=== PATIENT | male | born 1995 | race Caucasian/White ===

== ENCOUNTER 2017-05-30 22:42 | Emergency (ER) | payer BC ==
--- NOTE | 2017-05-30 22:51 | ER Report ---
History and Physical Time Seen By MD: 22:50 HPI/ROS CHIEF COMPLAINT: Dark urine, vomiting blood HISTORY OF PRESENT ILLNESS: 21-year-old male alcoholic who drinks one half pint per day for many months. Patient's concerned because he developed dark urine, which he thought was blood. Patient's been having vomiting. He vomited some blood.. He denies nosebleeds. Patient denies history of ulcers or varices. REVIEW OF SYSTEMS: Respiratory: No cough, no dyspnea. Cardiovascular: No chest pain, no palpitations. Gastrointestinal: As above Musculoskeletal: No back pain. Allergies: Coded Allergies: No Known Drug Allergies (Unverified , 05/30/17) Home Meds Active Scripts Omeprazole (OMEPRAZOLE) 20 Mg Capsule.dr, 1 CAP PO QDAY Y for stomach acid reduction, #28 CAP Prov:SEGUNDO LOPES DO 05/30/17 Diazepam (VALIUM) 5 Mg Tablet, 1-2 TAB PO TID Y for alcohol withdrawal symptoms , #15 TAB Prov:SEGUNDO LOPES DO 05/30/17 Promethazine Hcl (PROMETHAZINE HCL) 25 Mg Tablet, 25 MG PO Q4H Y for NAUSEA/ VOMITING, #12 TAB Prov:SEGUNDO LOPES DO 05/30/17 Reviewed Nurses Notes: Yes Old Medical Records Reviewed: Yes Constitutional Vital Sign - Last 24 Hours 05/30/17 05/31/17 22:47 00:13 Temp 98.5 Pulse 132 85 Resp 18 16 B/P (MAP) 148/110 128/84 (99) Pulse Ox 94 95 O2 Delivery Room Air Room Air Physical Exam General Appearance: The patient is alert, has no immediate need for airway protection and no current signs of toxicity. Vital signs stable, grossly tachycardic, afebrile, pulse ox normal Eyes: Pupils equal and round no injection. Icteric sclera, oropharynx without redness or exudate, mucous membranes are moist Respiratory: Chest is non tender, lungs are clear to auscultation. Cardiac: regular rate and rhythm Gastrointestinal: Abdomen is soft and non tender, no masses, bowel sounds normal. No hepatomegaly Musculoskeletal: Neck: Neck is supple and non tender. Extremities have full range of motion and are non tender. Skin: No rashes or lesions. DIFFERENTIAL DIAGNOSIS: After history and physical exam differential diagnosis was considered for alcohol dependence, alcoholic liver disease, jaundice, there is, peptic ulcer disease, gastritis. Medical Decision Making Data Points Result Diagram: 05/30/17230405/30/172304 Laboratory Hematology Test 05/30/17 23:05 Red Blood Count 4.77 M/uL (4.00-5.60) Mean Corpuscular Volume 101.3 fL (80.0-96.0) Mean Corpuscular Hemoglobin 35.5 pg (26.0-33.0) Mean Corpuscular Hemoglobin Concent 35.0 g/dL (32.0-36.0) Red Cell Distribution Width 13.4 % (11.5-14.5) Mean Platelet Volume 7.8 fL (7.2-11.1) Neutrophils (%) (Auto) 71.0 % (39.4-72.5) Lymphocytes (%) (Auto) 20.9 % (17.6-49.6) Monocytes (%) (Auto) 7.2 % (4.1-12.4) Eosinophils (%) (Auto) 0.2 % (0.4-6.7) Basophils (%) (Auto) 0.7 % (0.3-1.4) Nucleated RBC Relative Count (auto) 0.0 /100WBC Neutrophils # (Auto) 4.7 K/uL (2.0-7.4) Lymphocytes # (Auto) 1.4 K/uL (1.3-3.6) Monocytes # (Auto) 0.5 K/uL (0.3-1.0) Eosinophils # (Auto) 0.0 K/uL (0.0-0.5) Basophils # (Auto) 0.0 K/uL (0.0-0.1) Nucleated RBC Absolute Count (auto) 0.00 K/uL Prothrombin Time 13.3 seconds (12.0-14.4) Prothromb Time International Ratio 1.01 Activated Partial Thromboplast Time 24 seconds (23-35) Sodium Level 139 mmol/L (137-145) Potassium Level 3.3 mmol/L (3.5-5.0) Chloride Level 95 mmol/L (98-107) Carbon Dioxide Level 18 mmol/L (22-30) Blood Urea Nitrogen 8 mg/dl (9-21) Creatinine 1.00 mg/dl (0.66-1.25) Glomerular Filtration Rate Calc > 60.0 Random Glucose 107 mg/dl (75-110) Calcium Level 9.6 mg/dl (8.4-10.2) Total Bilirubin 3.0 mg/dl (0.2-1.3) Aspartate Amino Transf (AST/SGOT) 258 U/L (0-35) Alanine Aminotransferase (ALT/SGPT) 162 U/L (0-56) Alkaline Phosphatase 79 U/L (0-126) Total Protein 7.5 gm/dl (6.3-8.2) Albumin 4.8 g/dl (3.5-5.0) Amylase Level 92 U/L (0-110) Lipase 182 U/L (23-300) Serum Alcohol 196 mg/dl Chemistry Test 05/30/17 23:05 White Blood Count 6.7 k/uL (4.5-11.0) Red Blood Count 4.77 M/uL (4.00-5.60) Hemoglobin 16.9 g/dL (14.0-18.0) Hematocrit 48.3 % (42.0-52.0) Mean Corpuscular Volume 101.3 fL (80.0-96.0) Mean Corpuscular Hemoglobin 35.5 pg (26.0-33.0) Mean Corpuscular Hemoglobin Concent 35.0 g/dL (32.0-36.0) Red Cell Distribution Width 13.4 % (11.5-14.5) Platelet Count 225 K/uL (150-450) Mean Platelet Volume 7.8 fL (7.2-11.1) Neutrophils (%) (Auto) 71.0 % (39.4-72.5) Lymphocytes (%) (Auto) 20.9 % (17.6-49.6) Monocytes (%) (Auto) 7.2 % (4.1-12.4) Eosinophils (%) (Auto) 0.2 % (0.4-6.7) Basophils (%) (Auto) 0.7 % (0.3-1.4) Nucleated RBC Relative Count (auto) 0.0 /100WBC Neutrophils # (Auto) 4.7 K/uL (2.0-7.4) Lymphocytes # (Auto) 1.4 K/uL (1.3-3.6) Monocytes # (Auto) 0.5 K/uL (0.3-1.0) Eosinophils # (Auto) 0.0 K/uL (0.0-0.5) Basophils # (Auto) 0.0 K/uL (0.0-0.1) Nucleated RBC Absolute Count (auto) 0.00 K/uL Prothrombin Time 13.3 seconds (12.0-14.4) Prothromb Time International Ratio 1.01 Activated Partial Thromboplast Time 24 seconds (23-35) Glomerular Filtration Rate Calc > 60.0 Calcium Level 9.6 mg/dl (8.4-10.2) Total Bilirubin 3.0 mg/dl (0.2-1.3) Aspartate Amino Transf (AST/SGOT) 258 U/L (0-35) Alanine Aminotransferase (ALT/SGPT) 162 U/L (0-56) Alkaline Phosphatase 79 U/L (0-126) Total Protein 7.5 gm/dl (6.3-8.2) Albumin 4.8 g/dl (3.5-5.0) Amylase Level 92 U/L (0-110) Lipase 182 U/L (23-300) Serum Alcohol 196 mg/dl Coagulation Test 05/30/17 23:05 Prothrombin Time 13.3 seconds Prothromb Time International Ratio 1.01 Activated Partial Thromboplast Time 24 seconds Toxicology Test 05/30/17 23:05 Serum Alcohol 196 mg/dl ED Course/Re-evaluation Clinical Indication for ER IV: Hydration, IV Access ED Course Patient was admitted to an examination room. H&P was done. The differential diagnoses was considered. On clinical examination. Patient's concerned about dark urine and vomiting blood with his heavy drinking. He is offered medical detox, but declines. He is treated with a banana bag IV, Zofran 4 mg. His laboratory studies show an elevated MCV, alcoholic hepatitis with elevated LFTs to the 300s. Patient's blood alcohol is 200. There is no bone marrow toxicity from the alcohol noted. He'll be discharged home on Phenergan, Valium and omeprazole. He's advised to discontinue alcohol. Decision to Disposition Date: May 30, 2017 Decision to Disposition Time: 23:29 Depart Departure Latest Vital Signs Vital Signs Date Time Temp Pulse Resp B/P (MAP) Pulse Ox O2 Delivery O2 Flow Rate FiO2 05/31/17 00:13 85 16 128/84 (99) 95 Room Air 4/7/18 22:47 98.5 Impression: Primary Impression: Hematemesis Additional Impressions: Alcoholic hepatitis Alcohol dependence Elevated MCV Jaundice Dark brown urine Condition: Improved Disposition: HOME OR SELF-CARE Referrals: CARRIE PHIPPS MD,GILMAR Milian MD New Scripts Omeprazole (OMEPRAZOLE) 20 Mg Capsule.dr 1 CAP PO QDAY Y for stomach acid reduction, #28 CAP Prov: SEGUNDO LOPES DO 05/30/17 Diazepam (VALIUM) 5 Mg Tablet 1-2 TAB PO TID Y for alcohol withdrawal symptoms, #15 TAB Prov: SEGUNDO LOPES DO 05/30/17 Promethazine Hcl (PROMETHAZINE HCL) 25 Mg Tablet 25 MG PO Q4H Y for NAUSEA/VOMITING, #12 TAB Prov: SEGUNDO LOPES 05/30/17 Patient Instructions: Alcohol Dependence (ED) Additional Instructions: Stop drinking alcohol Use medication to prevent withdrawal to control vomiting Take Prilosec/omeprazole 20 mg per day to reduce her stomach acid by 80 or 90% to allow the site of bleeding to heal Call for appointment with general surgery within one week for endoscopy to evaluate the source of her bleeding, called Dr. Rothman or Problem Qualifiers Primary Impression: Hematemesis Nausea presence: with nausea Qualified Codes: K92.0 - Hematemesis Additional Impressions: Alcoholic hepatitis Ascites presence: without ascites Qualified Codes: K70.10 - Alcoholic hepatitis without ascites Alcohol dependence Substance use status: uncomplicated Qualified Codes: F10.20 - Alcohol dependence, uncomplicated SEGUNDO LOPES DO May 30, 2017 22:51
[2017-05-30] MEDS ORDERED: THIAMINE HCL(*) 200 MG/2 ML IN 100 MG, FOLIC ACID(*) 50 MG/10 ML INJ 1 MG, MULTIVITAMIN... IV ONE (23:00)
[2017-05-30] MEDS ORDERED: ONDANSETRON 4 MG/2 ML VIAL IVP ONE (23:00)
[2017-05-30 23:13] LABS: PLATELET COUNT, AUTOMATED 225 K/uL (150-450)
[2017-05-30 23:23] LABS: INR 1.01
[2017-05-30] MEDS ORDERED: PROM-110 PO (23:37)
[2017-05-30] MEDS ORDERED: DIA5 PO (23:37)
[2017-05-30] MEDS ORDERED: OMEP-125 PO (23:37)
[2017-05-31 00:13] VITALS: BP 128/84
== END 2017-05-31 00:18 | disposition home or self-care (01) ==
LOC: ER 22:50
DX: F10.20 Alcohol dependence, uncomplicated (principal); K70.10 Alcoholic hepatitis without ascites; K92.0 Hematemesis; R79.89 Other specified abnormal findings of blood chemistry; R39.198 Other difficulties with micturition; R17 Unspecified jaundice
CPT/HCPCS: 80320; 82150; 83690; 85025; 85610; 85730; 96365; 96375; 99284; J2405; J3411; J3475; J7030; 82040; 82247; 82310; 82374; 82435; 82565; 82947; 84075; 84132; 84155; 84295; 84450; 84460; 84520

== ENCOUNTER 2017-06-01 19:43 | Emergency (ER) | payer BC ==
[~2017-06-01 19:43] MED LIST: DIA5 PO; OMEP-125 PO; PROM-110 PO
--- NOTE | 2017-06-01 19:51 | ER Report ---
History and Physical Time Seen By MD: 19:51 Hx. of Stated Complaint: "EMOTIONLESS" (GAURAV KEMP) HPI/ROS CHIEF COMPLAINT: Not feeling right HISTORY OF PRESENT ILLNESS: 21-year-old male patient presents to emergency room with complaint of not feeling right. Patient was brought in by his parents. He states they came over [place] to have dinner with him. States that while there are degenerative they're there for short. Time in the brought him here. Patient has no recollection of the past couple days and is unable to give me the date. Patient states that this is a Thursday. He denies having any dizziness, nausea, vomiting, headache. Patient does have some abdominal pain. He states that he has not taken any medications for this. Patient was seen 2 days ago in the emergency room, however the patient is unable to recall that visit. REVIEW OF SYSTEMS: Respiratory: No cough, no dyspnea. Cardiovascular: No chest pain, no palpitations. Gastrointestinal: As noted above Musculoskeletal: No back pain. (GAURAV KEMP) Allergies: Coded Allergies: No Known Drug Allergies (Unverified , 06/01/17) Home Meds Active Scripts Omeprazole (OMEPRAZOLE) 20 Mg Capsule.dr, 1 CAP PO QDAY Y for stomach acid reduction, #28 CAP Prov:SEGUNDO LOPES DO 05/30/17 Diazepam (VALIUM) 5 Mg Tablet, 1-2 TAB PO TID Y for alcohol withdrawal symptoms , #15 TAB Prov:SEGUNDO LOPES DO 05/30/17 Promethazine Hcl (PROMETHAZINE HCL) 25 Mg Tablet, 25 MG PO Q4H Y for NAUSEA/ VOMITING, #12 TAB Prov:SEGUNDO LOPES DO 05/30/17 Past Medical/Surgical History Patient has a past medical history of alcohol abuse. Patient has surgical history wisdom teeth removal. (GAURAV KEMP) Reviewed Nurses Notes: Yes (GAURAV KEMP) Hx Substance Use Disorder: No Hx Alcohol Use: Yes (HALF A BOTTLE OF VODKA A NIGHT) (GAURAV KEMP) Constitutional Vital Sign - Last 24 Hours 06/01/17 06/01/17 06/01/17 06/01/17 19:48 20:00 20:10 20:20 Temp 98.5 Pulse 94 100 93 85 Resp 16 22 19 16 B/P (MAP) 167/112 150/112 (125) Pulse Ox 95 100 97 97 06/01/17 06/01/17 06/01/17 06/01/17 20:30 20:40 20:50 21:00 Pulse 97 91 91 ??? Resp 17 16 17 B/P (MAP) 136/105 (115) ???/??? (1665) Pulse Ox 100 100 100 (FRANLORRI SORTO MD) Physical Exam General Appearance: The patient is alert, has no immediate need for airway protection and no current signs of toxicity. Eyes: Pupils equal and round no injection. Pupils are dilated, however they do react appropriately to light. Respiratory: Chest is non tender, lungs are clear to auscultation. Cardiac: regular rate and rhythm Gastrointestinal: Abdomen is soft and non tender, no masses, bowel sounds normal. Musculoskeletal: Neck: Neck is supple and non tender. Extremities have full range of motion and are non tender. Skin: No rashes or lesions. DIFFERENTIAL DIAGNOSIS: After history and physical exam differential diagnosis was considered for delirium, psychosis, drug intoxication, alcohol withdrawal. (GAURAV KEMP) Medical Decision Making Data Points Result Diagram: 06/01/17200406/01/172004 Laboratory Hematology Test 06/01/17 20:05 06/01/17 20:59 Red Blood Count 4.39 M/uL (4.00-5.60) Mean Corpuscular Volume 101.1 fL (80.0-96.0) Mean Corpuscular Hemoglobin 35.9 pg (26.0-33.0) Mean Corpuscular Hemoglobin Concent 35.5 g/dL (32.0-36.0) Red Cell Distribution Width 13.2 % (11.5-14.5) Mean Platelet Volume 8.6 fL (7.2-11.1) Neutrophils (%) (Auto) 73.1 % (39.4-72.5) Lymphocytes (%) (Auto) 14.9 % (17.6-49.6) Monocytes (%) (Auto) 11.1 % (4.1-12.4) Eosinophils (%) (Auto) 0.5 % (0.4-6.7) Basophils (%) (Auto) 0.4 % (0.3-1.4) Nucleated RBC Relative Count (auto) 0.0 /100WBC Neutrophils # (Auto) 4.2 K/uL (2.0-7.4) Lymphocytes # (Auto) 0.9 K/uL (1.3-3.6) Monocytes # (Auto) 0.6 K/uL (0.3-1.0) Eosinophils # (Auto) 0.0 K/uL (0.0-0.5) Basophils # (Auto) 0.0 K/uL (0.0-0.1) Nucleated RBC Absolute Count (auto) 0.00 K/uL Peripheral Blood Smear Y/N Sodium Level 135 mmol/L (137-145) Potassium Level 3.5 mmol/L (3.5-5.0) Chloride Level 95 mmol/L (98-107) Carbon Dioxide Level 21 mmol/L (22-30) Blood Urea Nitrogen 19 mg/dl (9-21) Creatinine 1.10 mg/dl (0.66-1.25) Glomerular Filtration Rate Calc > 60.0 Random Glucose 95 mg/dl (75-110) Calcium Level 10.0 mg/dl (8.4-10.2) Magnesium Level 1.8 mg/dl (1.7-2.2) Total Bilirubin 3.1 mg/dl (0.2-1.3) Aspartate Amino Transf (AST/SGOT) 119 U/L (0-35) Alanine Aminotransferase (ALT/SGPT) 121 U/L (0-56) Alkaline Phosphatase 71 U/L (0-126) Total Protein 7.7 gm/dl (6.3-8.2) Albumin 4.9 g/dl (3.5-5.0) Salicylates Level < 10 mg/L Salicylate Last Dose Date unk Acetaminophen Level < 10 ug/ml Serum Alcohol < 10 mg/dl Urine Color Straw Urine Clarity Clear Urine pH 6.0 pH (4.8-9.5) Urine Specific [place] 1.003 Urine Protein Negative mg/dL (NEGATIVE) Urine Glucose (UA) Negative mg/dL (NEGATIVE) Urine Ketones Trace mg/dL (NEGATIVE) Urine Blood Negative (NEGATIVE) Urine Nitrite Negative (NEGATIVE) Urine Bilirubin Negative (NEGATIVE) Urine Urobilinogen Negative mg/dL (0.2-1.9) Urine Leukocyte Esterase Negative (NEGATIVE) Urine RBC <1 /HPF (0-2/HPF) Urine WBC None /HPF (0-5/HPF) Urine Squamous Epithelial Cells Few /LPF (</=FEW) Urine Bacteria Negative /HPF (NONE-FEW) Urine Mucus None /HPF (NONE-FEW) Urine Opiates Screen Negative Urine Barbiturates Screen Negative Ur Tricyclic Antidepressants Screen Negative Urine Phencyclidine Screen Negative Urine Amphetamines Screen Negative Urine Benzodiazepines Screen Negative Urine Cocaine Screen Negative Urine Cannabinoids Screen Negative Chemistry Test 06/01/17 20:05 06/01/17 20:59 White Blood Count 5.8 k/uL (4.5-11.0) Red Blood Count 4.39 M/uL (4.00-5.60) Hemoglobin 15.8 g/dL (14.0-18.0) Hematocrit 44.4 % (42.0-52.0) Mean Corpuscular Volume 101.1 fL (80.0-96.0) Mean Corpuscular Hemoglobin 35.9 pg (26.0-33.0) Mean Corpuscular Hemoglobin Concent 35.5 g/dL (32.0-36.0) Red Cell Distribution Width 13.2 % (11.5-14.5) Platelet Count 164 K/uL (150-450) Mean Platelet Volume 8.6 fL (7.2-11.1) Neutrophils (%) (Auto) 73.1 % (39.4-72.5) Lymphocytes (%) (Auto) 14.9 % (17.6-49.6) Monocytes (%) (Auto) 11.1 % (4.1-12.4) Eosinophils (%) (Auto) 0.5 % (0.4-6.7) Basophils (%) (Auto) 0.4 % (0.3-1.4) Nucleated RBC Relative Count (auto) 0.0 /100WBC Neutrophils # (Auto) 4.2 K/uL (2.0-7.4) Lymphocytes # (Auto) 0.9 K/uL (1.3-3.6) Monocytes # (Auto) 0.6 K/uL (0.3-1.0) Eosinophils # (Auto) 0.0 K/uL (0.0-0.5) Basophils # (Auto) 0.0 K/uL (0.0-0.1) Nucleated RBC Absolute Count (auto) 0.00 K/uL Peripheral Blood Smear Y/N Glomerular Filtration Rate Calc > 60.0 Calcium Level 10.0 mg/dl (8.4-10.2) Magnesium Level 1.8 mg/dl (1.7-2.2) Total Bilirubin 3.1 mg/dl (0.2-1.3) Aspartate Amino Transf (AST/SGOT) 119 U/L (0-35) Alanine Aminotransferase (ALT/SGPT) 121 U/L (0-56) Alkaline Phosphatase 71 U/L (0-126) Total Protein 7.7 gm/dl (6.3-8.2) Albumin 4.9 g/dl (3.5-5.0) Salicylates Level < 10 mg/L Salicylate Last Dose Date unk Acetaminophen Level < 10 ug/ml Serum Alcohol < 10 mg/dl Urine Color Straw Urine Clarity Clear Urine pH 6.0 pH (4.8-9.5) Urine Specific [place] 1.003 Urine Protein Negative mg/dL (NEGATIVE) Urine Glucose (UA) Negative mg/dL (NEGATIVE) Urine Ketones Trace mg/dL (NEGATIVE) Urine Blood Negative (NEGATIVE) Urine Nitrite Negative (NEGATIVE) Urine Bilirubin Negative (NEGATIVE) Urine Urobilinogen Negative mg/dL (0.2-1.9) Urine Leukocyte Esterase Negative (NEGATIVE) Urine RBC <1 /HPF (0-2/HPF) Urine WBC None /HPF (0-5/HPF) Urine Squamous Epithelial Cells Few /LPF (</=FEW) Urine Bacteria Negative /HPF (NONE-FEW) Urine Mucus None /HPF (NONE-FEW) Urine Opiates Screen Negative Urine Barbiturates Screen Negative Ur Tricyclic Antidepressants Screen Negative Urine Phencyclidine Screen Negative Urine Amphetamines Screen Negative Urine Benzodiazepines Screen Negative Urine Cocaine Screen Negative Urine Cannabinoids Screen Negative Toxicology Test 06/01/17 20:05 06/01/17 20:59 Salicylates Level < 10 mg/L Salicylate Last Dose Date unk Acetaminophen Level < 10 ug/ml Serum Alcohol < 10 mg/dl Urine Opiates Screen Negative Urine Barbiturates Screen Negative Ur Tricyclic Antidepressants Screen Negative Urine Phencyclidine Screen Negative Urine Amphetamines Screen Negative Urine Benzodiazepines Screen Negative Urine Cocaine Screen Negative Urine Cannabinoids Screen Negative Urinalysis Test 06/01/17 20:59 Urine Color Straw Urine Clarity Clear Urine pH 6.0 pH (4.8-9.5) Urine Specific [place] 1.003 Urine Protein Negative mg/dL (NEGATIVE) Urine Glucose (UA) Negative mg/dL (NEGATIVE) Urine Ketones Trace mg/dL (NEGATIVE) Urine Blood Negative (NEGATIVE) Urine Nitrite Negative (NEGATIVE) Urine Bilirubin Negative (NEGATIVE) Urine Urobilinogen Negative mg/dL (0.2-1.9) Urine Leukocyte Esterase Negative (NEGATIVE) Urine RBC <1 /HPF (0-2/HPF) Urine WBC None /HPF (0-5/HPF) Urine Squamous Epithelial Cells Few /LPF (</=FEW) Urine Bacteria Negative /HPF (NONE-FEW) Urine Mucus None /HPF (NONE-FEW) (LORRI SCHROEDER MD) EKG/Imaging EKG Interpretation 12 lead EKG: Rhythm: normal sinus rhythm with sinus arrhythmia, ventricular rate of 82 bpm [place]: normal QRS: normal ST segments: normal (GAURAV KEMP) ED Course/Re-evaluation Turned Over The care of the patient was turned over to Dr. Schroeder. Gaurav TORRES I authorize my typed signature that I authenticated this report. (GAURAV KEMP) ED Course Reviewed this patient with Gaurav Kemp on sign out at the end of his shift. Patient with some confusion thought to be due to alcohol withdrawal. Improvement with Ativan. Workup with labs and CT scan of the head were done. Minor abnormalities on the labs, specifically with the liver function tests. Alcohol level negative. Drug screen negative. Discussed the case with Dr. Child who accepted him to admission to [facility]. Decision to Disposition Date: Jun 01, 2017 Decision to Disposition Time: 22:21 (LORRI SCHROEDER MD) Depart Departure Latest Vital Signs Vital Signs Date Time Temp Pulse Resp B/P (MAP) Pulse Ox O2 Delivery O2 Flow Rate FiO2 06/01/17 21:00 ?/??? (1665) 06/01/17 20:50 17 100 06/01/17 19:48 98.5 (LORRI SCHROEDER MD) Impression: Primary Impression: Alcohol withdrawal Condition: Condition Unchanged Disposition: XFER TO [facility] Problem Qualifiers Primary Impression: Alcohol withdrawal Complication of substance-induced condition: with delirium Qualified Codes: F10.231 - Alcohol dependence with withdrawal delirium GAURAV KEMP Jun 01, 2017 19:51 LORRI SCHROEDER MD Jun 01, 2017 21:55
[2017-06-01] MEDS ORDERED: NS(*) 0.9% 1000 ML BAG 1,000 ML IV ONE (20:06)
[2017-06-01] MEDS ORDERED: DIAZEPAM IVP ONE (20:15)
[2017-06-01 20:26] LABS: PLATELET COUNT, AUTOMATED 164 K/uL (150-450)
[2017-06-01] MEDS ORDERED: LORazepam 2 MG/ML VIAL IVP ONE (20:35)
--- NOTE | 2017-06-01 22:14 | RADIOLOGY IMAGING REPORT ---
FACILITY: [facility] [place] PATIENT NAME: Mp Frankel : 1995 MR: [id number] V: [id number] EXAM DATE: ORDERING PHYSICIAN: VENITA KEMP TECHNOLOGIST: Location: [facility] [place] Patient: Mp Frankel : 1995 Visit/Account:[id number] Date of Sevice: 06/01/2017 EXAMINATION: CT head without IV contrast HISTORY: Confusion. TECHNIQUE: Axial CT images of the head were obtained from the vertex to the skull base without IV c ontrast, with coronal and sagittal 2D reconstructed images. One of the following dose optimization techniques was utilized in the performance of this exam: Autom ated exposure control; adjustment of the mA and/or kV according to the patient's size; or use of an i terative reconstruction technique. Specific details can be referenced in the facility's radiology C T exam operational policy. COMPARISON: None. FINDINGS: The intracranial contents are unremarkable. No CT evidence of intracranial hemorrhage, mass lesion, or acute infarct. No midline shift or extra-axial fluid collections. Molina-white differentiation is maintained. The calvarium is intact. The visualized paranasal sinuses and mastoid air cells are unopacified. IMPRESSION: Unremarkable noncontrast head CT. Report Dictated By: Favian Israel MD at 06/01/2017 10:06 PM Report E-Signed By: Favian Israel MD at 06/01/2017 10:11 PM WSN:[id number]
--- NOTE | 2017-06-02 02:20 | EKG ---
FACILITY: [facility] PATIENT NAME: ZAC JIM : [id number] MR: [id number] V: [id number] EXAM DATE: ORDERING PHYSICIAN: VENITA KEMP TECHNOLOGIST: RIDGE Test Reason : TACHYCARDIA Blood Pressure : / mmHG Vent. Rate : 082 BPM Atrial Rate : 082 BPM P-R Int : 130 ms QRS Dur : 082 ms QT Int : 376 ms P-R-T Axes : 058 049 034 degrees QTc Int : 439 ms Normal sinus rhythm with sinus arrhythmia Normal ECG No previous ECGs available Confirmed by DEBBIE CASTELAN ([id number]) on 06/02/2017 6:10:26 AM Referred By: Confirmed By:DEBBIE CASTELAN
== END 2017-06-01 22:52 ==
LOC: ER 20:10
DX: F10.231 Alcohol dependence with withdrawal delirium (principal)
CPT/HCPCS: 70450; 80305; 80320; 80329; 81001; 83735; 84443; 85025; 93005; 96361; 96374; 99285; J2060; J7030; 82040; 82247; 82310; 82374; 82435; 82565; 82947; 84075; 84132; 84155; 84295; 84450; 84460; 84520

== ENCOUNTER 2017-06-01 22:31 | Inpatient (IN) | payer BC ==
[~2017-06-01] VITALS: Ht 175.3 cm; Wt 72.6 kg
[2017-06-01] MEDS ORDERED: IBUPROFEN 600 MG TAB PO PRN (23:05)
[2017-06-01] MEDS ORDERED: MAG HYD/AL HYD/SIMETH 30ML UDC PO PRN (23:05)
[2017-06-01 23:06] VITALS: BP 145/101
[2017-06-01] MEDS ORDERED: NICOTINE CARTRIDGE 1 EA PO PRN (23:10)
[2017-06-01] MEDS: LORazepam 1 MG TAB PO PRN (23:13)
[2017-06-02] VITALS (9 sets, daily range): BP systolic 113–144; BP diastolic 74–112
[2017-06-02] MEDS: NICOTINE INH SYSTEM 10 MG/INH INH PRN
[2017-06-02] MEDS: LORazepam 1 MG TAB PO PRN ×9 (00:12→22:18)
[2017-06-02 06:20] LABS: PLATELET COUNT, AUTOMATED 133 K/uL (150-450)
[2017-06-02] MEDS: FOLIC ACID 1 MG TAB PO SCH (08:18)
[2017-06-02] MEDS: THIAMINE HCL 100 MG TAB PO SCH (08:18)
[2017-06-02] MEDS: MULTIVITAMINS TAB PO SCH (08:18)
--- NOTE | 2017-06-02 14:37 | HISTORY AND PHYSICAL ---
DATE OF ADMISSION: June 01, 2017 Patient was seen on the a.m. of June 02, 2017 at approximately 0900 hours. PRESENTING PROBLEM/CHIEF COMPLAINT Delirium tremens associated with alcohol withdrawal. HISTORY OF PRESENT ILLNESS This is a polite 21-year-old male who is recovering from an acute delirium first noted in the ER the evening before. The patient had gotten some sleep through the night with treatment with lorazepam per [facility] protocol, for what appears to be primarily a diagnosis of alcohol use disorder severe and associated alcohol withdrawal. Patient himself difficult to interview. States that alcohol is his primary substance of choice. Patient reported using acid recently and uses cannabis once in a while as well. Patient emotional and tearful at times when talking about his childhood in which he "felt alone" and states he has "no friends." However, patient denying any psychiatric symptoms. MENTAL HEALTH HISTORY Patient reports he was never an inpatient in a psychiatric morales before, but did receive some outpatient counseling and had been on, according to the patient, "three antidepressants," but could not remember names. He reports he thinks were around the fourth grade. Patient denies a history of suicide attempt or suicidal thoughts. He is not currently on any medications now for any psychiatric concerns. FAMILY PSYCHIATRIC HISTORY Patient reports uncles and aunts on both sides of the family do suffer from alcohol use disorder, and an uncle was involved with heroin addiction as well. There is no other psychiatric disturbance noted in the family history according to the patient. PAST MEDICAL HISTORY Patient denies any significant history, is not on any medications, and does not have any allergies. SOCIAL HISTORY Patient was originally born in [place], raised in the [facility]. Parents were at the time of his and they still are. Patient has one sister who is believed to be younger. Patient reports overall a good childhood, but felt alone, growing up with no friends. Patient denying any kind of emotional, physical or sexual abuse growing up. Graduated high school and did enter college in pursuit of an vice president of engineering degree, but has since failed out due to poor academic performance. Patient is not currently working has never been in the , is a heterosexual, has no significant other and has no children. 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 Patient is known to receive some financial help from his parents as well, who were contacted. Patient lives alone here in [place] at this time. LEGAL HISTORY Patient denies any legal history. SUBSTANCE ABUSE HISTORY Patient again reported drinking alcohol heavily for at least approximately the last year. He started using marijuana at around age 18 as well, and patient has tried cocaine times one. PHYSICAL EXAMINATION GENERAL: Please see emergency room note. Notable for a 21-year-old male with significant impairment apparently from the affects of alcoholism at his young age. Patient delirious at the time of admission to the emergency room. VITAL SIGNS: At the time of admission, temperature 98.5, pulse 94, respiratory rate 16, blood pressure 167/112 and pulse oximetry 95 on room air. LABORATORY DATA CBC notable for MCV and MCH elevated at 101 and 35.9 respectively. The platelet count in low normal range at 164,000 upon admission. Chemistry panel notable for total bilirubin elevated at 3.1, AST 119 and ALT 121, both elevated. TSH pending. Urinalysis notable for trace urine ketones, otherwise unremarkable. Toxicology screen negative for substances of abuse, with a nondetectable serum alcohol level. [facility] MENTAL STATUS EXAMINATION GENERAL APPEARANCE, BEHAVIOR AND ATTITUDE: At the time of initial interview, patient making improved eye contact, in a state of psychomotor retardation. Patient endometrial, tearful at times when taking about him not having any friends growing up. Patient cooperative. No bizarre mannerisms or tics. SPEECH: Very quiet. MOOD: Depressed appearing. AFFECT: Constricted and mood congruent. THOUGHT PROCESSES: Improving overall, becoming more goal directed and more logical. No gross loose associations or flight of ideas were noted as delirium was being treated. THOUGHT CONTENT: Possible visual hallucinations remain, although are likely lessening, delusions, obsessions, compulsions. No suicidal or homicidal ideation existed. SENSORIUM: Still cloudy, but improving. COGNITION: Alert and oriented to person, place, mostly to time and partially to situation. MEMORY: Immediate, recent and remote historically intact. INTELLIGENCE: Historically average based on interview with patient and patient 's father. INSIGHT AND JUDGMENT: Limited currently secondary to acute alcohol withdrawal. ASSESSMENT This is a 21-year-old male who is suffering from significant alcoholism considering his young age. Patient's father was contacted, was unaware of the extent of the patient's alcoholism, but did indicate that patient had contacted him wanting to meet with family here in [place]. This may represent the patient deciding to get some help. We will continue to treat alcohol withdrawal with [facility] protocol and Lorazepam, and continue to look for ways to sustain abstinence upon discharge. DIAGNOSES PER DSM-V Alcohol withdrawal. Alcohol use disorder, severe. Cannabis use disorder, moderate. Social stressors related to alcoholism. Patient apparently has supportive family. PLAN 1. Admit to the unit. 2. Necessary precautions to be implemented. 3. Patient will participate in individual and group therapy to the best of his ability. 4. Medications including Lorazepam per [facility] protocol will be used to treat acute alcohol withdrawal and delirium. 5. Collateral information to be obtained as necessary. 6. Estimated length of stay three to five days at this time, and we will encourage strongly that this patent enter residential rehab for a very advanced degree of alcoholism for his young age. ISAÍAS
[2017-06-03 03:30] VITALS: BP 107/78
[2017-06-03 06:50] VITALS: BP 130/90
[2017-06-03] MEDS: NICOTINE INH SYSTEM 10 MG/INH INH PRN ×5 (07:17→21:31)
[2017-06-03] MEDS: LORazepam 1 MG TAB PO PRN ×6 (07:17→22:25)
[2017-06-03] MEDS: MULTIVITAMINS TAB PO SCH (08:03)
[2017-06-03] MEDS: THIAMINE HCL 100 MG TAB PO SCH (08:03)
[2017-06-03] MEDS: FOLIC ACID 1 MG TAB PO SCH (08:03)
[2017-06-03 11:10] VITALS: BP 118/94
[2017-06-03] MEDS: CHOLECALCIFEROL 1000 UNIT TAB PO SCH (11:16)
[2017-06-03] MEDS: OMEGA-3 500 MG CAP PO SCH (11:16)
--- NOTE | 2017-06-03 12:39 | BHS Progress Note ---
BHS - Subjective Progress Notes Subjective Patient remains cooperative and pleasant, interacting well with his parents and treatment team staff. Confusion associated with delirium tremens continues to resolve, Alcohol withdrawal is resolving as well, patient on [facility] protocol. Will continue treatment and plan for discharge Thursday morning to care of parents, and enter residential rehab. No other concerns today. Suicidal Ideation: None Homicidal Ideation: None S - Objective Physical Exam Vital Signs Vital Signs Date Time Temp Pulse Resp B/P (MAP) Pulse Ox O2 Delivery O2 Flow Rate FiO2 06/03/17 11:10 97.5 82 16 118/94 (102) 97 Room Air Hematology Test 06/02/17 06:10 Red Blood Count 4.07 M/uL (4.00-5.60) Mean Corpuscular Volume 101.6 fL (80.0-96.0) Mean Corpuscular Hemoglobin 36.0 pg (26.0-33.0) Mean Corpuscular Hemoglobin Concent 35.4 g/dL (32.0-36.0) Red Cell Distribution Width 13.0 % (11.5-14.5) Mean Platelet Volume 8.6 fL (7.2-11.1) Neutrophils (%) (Auto) 51.1 % (39.4-72.5) Lymphocytes (%) (Auto) 34.1 % (17.6-49.6) Monocytes (%) (Auto) 11.4 % (4.1-12.4) Eosinophils (%) (Auto) 2.7 % (0.4-6.7) Basophils (%) (Auto) 0.7 % (0.3-1.4) Nucleated RBC Relative Count (auto) 0.0 /100WBC Neutrophils # (Auto) 2.2 K/uL (2.0-7.4) Lymphocytes # (Auto) 1.5 K/uL (1.3-3.6) Monocytes # (Auto) 0.5 K/uL (0.3-1.0) Eosinophils # (Auto) 0.1 K/uL (0.0-0.5) Basophils # (Auto) 0.0 K/uL (0.0-0.1) Nucleated RBC Absolute Count (auto) 0.00 K/uL Peripheral Blood Smear No Y/N Sodium Level 137 mmol/L (137-145) Potassium Level 3.4 mmol/L (3.5-5.0) Chloride Level 101 mmol/L (98-107) Carbon Dioxide Level 21 mmol/L (22-30) Blood Urea Nitrogen 14 mg/dl (9-21) Creatinine 0.90 mg/dl (0.66-1.25) Glomerular Filtration Rate Calc > 60.0 Random Glucose 75 mg/dl (75-110) Calcium Level 9.0 mg/dl (8.4-10.2) Magnesium Level 1.9 mg/dl (1.7-2.2) Total Bilirubin 2.8 mg/dl (0.2-1.3) Aspartate Amino Transf (AST/SGOT) 114 U/L (0-35) Alanine Aminotransferase (ALT/SGPT) 110 U/L (0-56) Alkaline Phosphatase 55 U/L (0-126) Ammonia < 9 UMOL/L (9-33) Total Protein 6.0 gm/dl (6.3-8.2) Albumin 3.8 g/dl (3.5-5.0) Chemistry Test 06/02/17 06:10 White Blood Count 4.4 k/uL (4.5-11.0) Red Blood Count 4.07 M/uL (4.00-5.60) Hemoglobin 14.7 g/dL (14.0-18.0) Hematocrit 41.4 % (42.0-52.0) Mean Corpuscular Volume 101.6 fL (80.0-96.0) Mean Corpuscular Hemoglobin 36.0 pg (26.0-33.0) Mean Corpuscular Hemoglobin Concent 35.4 g/dL (32.0-36.0) Red Cell Distribution Width 13.0 % (11.5-14.5) Platelet Count 133 K/uL (150-450) Mean Platelet Volume 8.6 fL (7.2-11.1) Neutrophils (%) (Auto) 51.1 % (39.4-72.5) Lymphocytes (%) (Auto) 34.1 % (17.6-49.6) Monocytes (%) (Auto) 11.4 % (4.1-12.4) Eosinophils (%) (Auto) 2.7 % (0.4-6.7) Basophils (%) (Auto) 0.7 % (0.3-1.4) Nucleated RBC Relative Count (auto) 0.0 /100WBC Neutrophils # (Auto) 2.2 K/uL (2.0-7.4) Lymphocytes # (Auto) 1.5 K/uL (1.3-3.6) Monocytes # (Auto) 0.5 K/uL (0.3-1.0) Eosinophils # (Auto) 0.1 K/uL (0.0-0.5) Basophils # (Auto) 0.0 K/uL (0.0-0.1) Nucleated RBC Absolute Count (auto) 0.00 K/uL Peripheral Blood Smear No Y/N Glomerular Filtration Rate Calc > 60.0 Calcium Level 9.0 mg/dl (8.4-10.2) Magnesium Level 1.9 mg/dl (1.7-2.2) Total Bilirubin 2.8 mg/dl (0.2-1.3) Aspartate Amino Transf (AST/SGOT) 114 U/L (0-35) Alanine Aminotransferase (ALT/SGPT) 110 U/L (0-56) Alkaline Phosphatase 55 U/L (0-126) Ammonia < 9 UMOL/L (9-33) Total Protein 6.0 gm/dl (6.3-8.2) Albumin 3.8 g/dl (3.5-5.0) Muscle Strength and Tone: WNL Gait and Station: Steady [facility] Medications Reviewed: Side Effects, Benefits of Medication, Risks Allergies Reviewed: Yes Mental Status Exam General Appearance: Casual, Well Groomed, Good Eye Contact, Cooperative, Polite , Good Interaction, No Tearful, No Psychomotor Agitation, Psychomotor Retardation, Bizarre Mannerisms (stare), No Tics Speech: Clear, Spontaneous, Normal Rate, Normal Rhythm, No Normal Volume (soft at times), Normal Tone, No Delayed, No Slurred, No Garbled, No Rambling, No Inappropriate Mood: Dysthmic/Depressed (potential underlying depressive symptoms exist. ) Affect: Calm, Neutral, No Withdrawn, No Tearful, No Anxious, No Agitated Thought Process: Organized, Logical, Goal Directed, No Loose Associations, No Flight of Ideas Thought Content: No Suicidal Ideation, No Homicidal Ideation, No Delusions, No Auditory Halllucinations, No Visual Hallucinations, No Thought Broadcasting, No Ideas of Reference, No Obsessions, No Compulsions Sensorium: Clear Cognition: Alert & Oriented-Person, Alert & Oriented-Place, Alert & Oriented- Time, No Dozbi-Phwthdwt-Dumzacxgc (partially, delerium resolving) Memory: Immediate, Recent, Remote Intelligence: Average Insight Judgment: Fair (in absence of alcohol) Result Diagram: 06/02/1710 06/02/1710 [facility] Assessment and Plan [id number] Encounter Date: Jun 03, 2017 [id number] Encounter Time: 10:00 [facility] Plan: Necessary Precautions, Individual/Group Therapy, Admin/Titrate Meds, Educate Patient Tobacco Medications: Started Multpiple Antipsychotics Used: No Problems: (1) Alcohol withdrawal Status: Acute (2) Alcohol dependence Status: Chronic Condition 1. continue treatment. 2. solidify discharge plans for Thursday. Problem Qualifiers (1) Alcohol withdrawal: Complication of substance-induced condition: with delirium Qualified Codes: F10.231 - Alcohol dependence with withdrawal delirium (2) Alcohol dependence: Substance use status: in withdrawal AIDEN HINTON MD Jun 03, 2017 12:39
[2017-06-03 14:20] VITALS: BP 128/96
[2017-06-03 16:28] VITALS: BP 124/86
[2017-06-03 22:34] VITALS: BP 128/90
[2017-06-04 04:30] VITALS: BP 116/93
[2017-06-04] MEDS: LORazepam 1 MG TAB PO PRN ×2 (04:38→08:17)
[2017-06-04 06:14] LABS: PLATELET COUNT, AUTOMATED 135 K/uL (150-450)
[2017-06-04 08:10] VITALS: BP 120/88
[2017-06-04] MEDS: CHOLECALCIFEROL 1000 UNIT TAB PO SCH (08:16)
[2017-06-04] MEDS: THIAMINE HCL 100 MG TAB PO SCH (08:16)
[2017-06-04] MEDS: FOLIC ACID 1 MG TAB PO SCH (08:17)
[2017-06-04] MEDS: MULTIVITAMINS TAB PO SCH (08:17)
[2017-06-04] MEDS: OMEGA-3 500 MG CAP PO SCH (08:18)
[2017-06-04] MEDS ORDERED: DIAZEPAM 10 MG TAB PO ONE ×3 (09:00→21:00)
--- NOTE | 2017-06-04 10:14 | BHS Progress Note ---
[facility] - Subjective Progress Notes Subjective Patient continues to improve, alcohol withdrawal is nearing completion. Will stop lorazepam today and dose scheduled diazepam today, in order to use its long half life to control any further withdrawal from alcohol and lorazepam. Patient denies any other concerns today, and will plan for discharge to care of parents and entrance into rehab tomorrow. Suicidal Ideation: None Homicidal Ideation: None [facility] - Objective Physical Exam Vital Signs Vital Signs Date Time Temp Pulse Resp B/P (MAP) Pulse Ox O2 Delivery O2 Flow Rate FiO2 06/04/17 08:10 97.7 82 120/88 (99) 98 Room Air 06/04/17 08:10 16 Muscle Strength and Tone: WNL Gait and Station: Steady [facility] Medications Reviewed: Side Effects, Benefits of Medication, Risks Allergies Reviewed: Yes Mental Status Exam General Appearance: Casual, Well Groomed, Good Eye Contact, Cooperative, Polite , Good Interaction, No Tearful, No Psychomotor Agitation, Psychomotor Retardation, Bizarre Mannerisms (stare), No Tics Speech: Clear, Spontaneous, Normal Rate, Normal Rhythm, No Normal Volume (soft at times), Normal Tone, No Delayed, No Slurred, No Garbled, No Rambling, No Inappropriate Mood: Dysthmic/Depressed (potential underlying depressive and anxious symptoms exist. ) Affect: Calm, Neutral, No Withdrawn, No Tearful, No Anxious, No Agitated Thought Process: Organized, Logical, Goal Directed, No Loose Associations, No Flight of Ideas Thought Content: No Suicidal Ideation, No Homicidal Ideation, No Delusions, No Auditory Halllucinations, No Visual Hallucinations, No Thought Broadcasting, No Ideas of Reference, No Obsessions, No Compulsions Sensorium: Clear Cognition: Alert & Oriented-Person, Alert & Oriented-Place, Alert & Oriented- Time, No Vbpve-Vdspwhbj-Gedunfopu (partially, delerium resolving) Memory: Immediate, Recent, Remote Intelligence: Average Insight Judgment: Fair (in absence of alcohol) Result Diagram: 06/04/1760506/04/17605 [facility] Assessment and Plan [id number] Encounter Date: Jun 04, 2017 Wuhg-[id number]-[id number] Encounter Time: 09:30 [facility] Plan: Necessary Precautions, Individual/Group Therapy, Admin/Titrate Meds, Educate Patient Tobacco Medications: Started Multpiple Antipsychotics Used: No Problems: (1) Alcohol withdrawal Status: Acute (2) Alcohol dependence Status: Chronic Condition plan for discharge tomorrow into care of parents, followed by entrance into rehab. Problem Qualifiers (1) Alcohol withdrawal: Complication of substance-induced condition: with delirium Qualified Codes: F10.231 - Alcohol dependence with withdrawal delirium (2) Alcohol dependence: Substance use status: in withdrawal AIDEN HINTON MD Jun 04, 2017 10:14
[2017-06-04] MEDS: NICOTINE INH SYSTEM 10 MG/INH INH PRN ×5 (10:46→21:33)
[2017-06-04 12:37] VITALS: BP 110/83
[2017-06-04 22:14] VITALS: BP 124/95
[2017-06-05 06:25] VITALS: BP 114/80
[2017-06-05] MEDS: MULTIVITAMINS TAB PO SCH (08:03)
[2017-06-05] MEDS: THIAMINE HCL 100 MG TAB PO SCH (08:03)
[2017-06-05] MEDS: CHOLECALCIFEROL 1000 UNIT TAB PO SCH (08:03)
[2017-06-05] MEDS: OMEGA-3 500 MG CAP PO SCH (08:03)
[2017-06-05] MEDS: FOLIC ACID 1 MG TAB PO SCH (08:03)
[2017-06-05] MEDS: NICOTINE INH SYSTEM 10 MG/INH INH PRN (08:17)
[2017-06-05] MEDS ORDERED: OMEG1CAP35 PO (08:40)
[2017-06-05] MEDS ORDERED: FOLI-68 PO (08:40)
[2017-06-05] MEDS ORDERED: CHOL10005 PO (08:41)
[2017-06-05] MEDS ORDERED: MULT-1379 PO (08:41)
[2017-06-05] MEDS ORDERED: NIC10R INH (08:42)
[2017-06-05] MEDS ORDERED: THIA100T62 PO (08:42)
[2017-06-05] MEDS ORDERED: NICOTROL INHALER PO (08:43)
--- NOTE | 2017-07-21 07:54 | BHS Discharge Summary ---
[facility] Discharge Summary [id number] Encounter Date: Jun 05, 2017 Ahnw-iu-[id number] Encounter Time: 08:00 Reason-Hosp/Final Diag (DSM-V): (1) Alcohol use disorder, severe, dependence Hospital Course & Plan: Pt was admitted voluntarily to [facility], and was in alcohol withdrawal with delerium. He was detoxed successfully using lorazepam and the [facility] ptotocol- chosen due to high liver enzymes. Pt's parents were involved and supportive; pt. himself was cooperative with all treatment modalities. Pt verbalized desire to enter an in-patient rehab program, and he was accepted at [facility] in [place]. On the morning of discharge, his father attended our treatment team meeting and the plan was for father to drive pt. up to [place] for admission that day at 3 pm. (2) Alcohol withdrawal Status: Acute Physical Exam Latest Vital Signs 97.4 T 76 P 114/80 BP 96 O2 sat on RA Mental Status Exam General Appearance: Casual, Well Groomed, Good Eye Contact, Cooperative, Polite , Good Interaction, Bizarre Mannerisms Speech: Clear, Spontaneous, Normal Rate, Normal Rhythm, Normal Volume, Normal Tone Mood: Euthymic Affect: Calm, Neutral Thought Process: Organized, Logical, Goal Directed Thought Content: No Suicidal Ideation, No Homicidal Ideation, No Delusions, No Auditory Halllucinations, No Visual Hallucinations, No Thought Broadcasting, No Ideas of Reference, No Obsessions, No Compulsions Sensorium: Clear Cognition: Alert & Oriented-Person, Alert & Oriented-Place, Alert & Oriented- Time, Nvmcb-Vrcjwakf-Dxbjtvwjg Memory: Immediate, Recent, Remote Intelligence: Average Insight Judgment: Fair Departure Condition: Improved Discharge to: Other Facility Discharge Instructions Home Meds Reported Medications [Nicotrol Inhaler] No Conflict Check, 1 EA PO PRN Y for NICOTINE REPLACEMENT 06/05/17 Nicotine (NICOTROL) 10 Mg/Inh Ctr, 10 MG INH PRN Y for NICOTINE REPLACEMENT 06/05/17 Thiamine Hcl (THIAMINE HCL) 100 Mg Tablet, 100 MG PO QDAY 06/05/17 Cholecalciferol (Vitamin D3) (VITAMIN D3) 1,000 Unit Tablet, 1000 UNIT PO QDAY, TAB 06/05/17 Multivits,Th W-Fe,Other Min (THERA-M) 1 Each Tablet, 1 EACH PO QDAY 06/05/17 Folic Acid (FOLIC ACID) 1 Mg Tablet, 1 MG PO QDAY, TAB 06/05/[address] [place]-3/Dha/Epa/Fish Oil (FISH OIL 500 MG SOFTGEL) 1 Each Capsule, 1000 MG PO QDAY, CAPSULE 06/05/17 Multpiple Antipsychotics Used: No Diet: Regular Special Instructions: Discharge in care of parents. Follow up with residential treatment; [place], [place]. Take medications as prescribed. Follow up with outpatient therapy/primary care provider. Call Crisis Line should symptoms return. Problem Qualifiers (1) Alcohol withdrawal: Complication of substance-induced condition: with delirium Qualified Codes: F10.231 - Alcohol dependence with withdrawal delirium BONNIE SARABIA MD July 21, 2017 07:54
== END 2017-06-05 09:08 | DRG 897 ==
LOC: BHS 22:31
PROVIDERS: ADMIT Psychiatry & Neurology Psychiatry; ATTEND Psychiatry & Neurology Psychiatry
DX: F10.231 Alcohol dependence with withdrawal delirium (principal); F16.90 Hallucinogen use, unspecified, uncomplicated; F12.90 Cannabis use, unspecified, uncomplicated; Z81.1 Family history of alcohol abuse and dependence; Z81.3 Family history of other psychoactive substance abuse and dependence; Y90.0 Blood alcohol level of less than 20 mg/100 ml
CPT/HCPCS: 36415; 82040; 82140; 82247; 82310; 82374; 82435; 82565; 82947; 83735; 84075; 84132; 84155; 84295; 84450; 84460; 84520; 85025

== ENCOUNTER 2018-03-24 06:15 | Emergency (ER) | payer BC ==
[~2018-03-24 06:15] MED LIST changes: +CHOL10005 PO; +FOLI-68 PO; +MULT-1379 PO; +NIC10R INH; +NICOTROL INHALER PO; +OMEG1CAP35 PO; +THIA100T62 PO
[2018-03-24 06:22] VITALS: BP 149/101
[2018-03-24] MEDS ORDERED: THIAMINE HCL(*) 200 MG/2 ML IN 100 MG, FOLIC ACID(*) 50 MG/10 ML INJ 1 MG, MULTIVITAMIN... IV ONE (06:27)
[2018-03-24] MEDS ORDERED: ONDA4TAB97 PO (06:34)
[2018-03-24] MEDS ORDERED: LORA-1456 PO (06:34)
--- NOTE | 2018-03-24 06:35 | ER Report ---
History and Physical Time Seen By MD: 06:31 Hx. of Stated Complaint: PT REPORTS LAST DRINK ON THURSDAY. AVERAGE OF A PINT OF HARD STUFF DAILY. HERE FOR VOLUNTARY DETOX. HPI/ROS CHIEF COMPLAINT: Alcohol withdrawal HISTORY OF PRESENT ILLNESS: 22-year-old male presents ambulatory to the ER requesting medication for alcohol withdrawal. Patient has a previous admission back in May of last year. She was subsequently transferred to [facility] treatment [facility] in [place], [place] are 90 days. He did was discharged. Patient states he remained sober until about December of last year. REVIEW OF SYSTEMS: Respiratory: No cough, no dyspnea. Cardiovascular: No chest pain, no palpitations. Gastrointestinal: No vomiting, no abdominal pain. Musculoskeletal: No back pain. Allergies: Coded Allergies: No Known Drug Allergies (Unverified , 03/24/18) Home Meds Active Scripts Ondansetron Hcl (ZOFRAN) 4 Mg Tablet, 4 MG PO Q8-12H PRN for NAUSEA/VOMITING, #10 Prov:MARCOS LOPESY Ya DO 03/24/18 Lorazepam (ATIVAN) 1 Mg Tablet, 1-2 MG PO Q6-8H PRN for alcohol withdrawal symptoms, #15 Prov:SEGUNDO LOPES DO 03/24/18 Discontinued Reported Medications [Nicotrol Inhaler] No Conflict Check, 1 EA PO PRN PRN for NICOTINE REPLACEMENT 06/05/17 Nicotine (NICOTROL) 10 Mg/Inh Ctr, 10 MG INH PRN PRN for NICOTINE REPLACEMENT 06/05/17 Thiamine Hcl (THIAMINE HCL) 100 Mg Tablet, 100 MG PO QDAY 06/05/17 Cholecalciferol (Vitamin D3) (VITAMIN D3) 1,000 Unit Tablet, 1000 UNIT PO QDAY, TAB 06/05/17 Multivits,Th W-Fe,Other Min (THERA-M) 1 Each Tablet, 1 EACH PO QDAY 06/05/17 Folic Acid (FOLIC ACID) 1 Mg Tablet, 1 MG PO QDAY, TAB 06/05/17 [place]-3/Dha/Epa/Fish Oil (FISH OIL 500 MG SOFTGEL) 1 Each Capsule, 1000 MG PO QDAY, CAPSULE 06/05/17 Hx Smoking: Yes Hx Substance Use Disorder: No Hx Alcohol Use: Yes (PAST DETOXING AND REHAB) Constitutional Vital Sign - Last 24 Hours 03/24/18 06:22 Temp 97.4 Pulse 100 Resp 16 B/P (MAP) 149/101 Pulse Ox 95 O2 Delivery Room Air Physical Exam General Appearance: The patient is alert, has no immediate need for airway protection and no current signs of toxicity. Vital signs stable, blood pressure elevated HEENT: Pupils equal and round no injection. Anicteric sclera, oropharynx without redness or exudate Respiratory: Chest is non tender, lungs are clear to auscultation. Cardiac: regular rate and rhythm Gastrointestinal: Abdomen is soft and non tender, no masses, bowel sounds normal. Musculoskeletal: Neck: Neck is supple and non tender. Extremities have full range of motion and are non tender. Skin: No rashes or lesions. DIFFERENTIAL DIAGNOSIS: After history and physical exam differential diagnosis was considered for depression including functional and major depression, situational depression, medication side effect, drugs or alcohol dependence, alcohol withdrawal and, alcohol abuse. Medical Decision Making Data Points Laboratory Hematology Test 03/24/18 06:20 Urine Color Yellow Urine Clarity Clear Urine pH 6.0 pH (4.8-9.5) Urine Specific [place] 1.006 Urine Protein Negative mg/dL (NEGATIVE) Urine Glucose (UA) Negative mg/dL (NEGATIVE) Urine Ketones Negative mg/dL (NEGATIVE) Urine Blood Negative (NEGATIVE) Urine Nitrite Negative (NEGATIVE) Urine Bilirubin Negative (NEGATIVE) Urine Urobilinogen Negative mg/dL (0.2-1.9) Urine Leukocyte Esterase Negative (NEGATIVE) Urine RBC None /HPF (0-2/HPF) Urine WBC <1 /HPF (0-5/HPF) Urine Squamous Epithelial Cells None /LPF (</=FEW) Urine Bacteria Negative /HPF (NONE-FEW) Urine Mucus None /HPF (NONE-FEW) Urine Opiates Screen Negative Urine Barbiturates Screen Negative Ur Tricyclic Antidepressants Screen Negative Urine Phencyclidine Screen Negative Urine Amphetamines Screen Negative Urine Benzodiazepines Screen Negative Urine Cocaine Screen Negative Urine Cannabinoids Screen Negative Chemistry Test 03/24/18 06:20 Urine Color Yellow Urine Clarity Clear Urine pH 6.0 pH (4.8-9.5) Urine Specific [place] 1.006 Urine Protein Negative mg/dL (NEGATIVE) Urine Glucose (UA) Negative mg/dL (NEGATIVE) Urine Ketones Negative mg/dL (NEGATIVE) Urine Blood Negative (NEGATIVE) Urine Nitrite Negative (NEGATIVE) Urine Bilirubin Negative (NEGATIVE) Urine Urobilinogen Negative mg/dL (0.2-1.9) Urine Leukocyte Esterase Negative (NEGATIVE) Urine RBC None /HPF (0-2/HPF) Urine WBC <1 /HPF (0-5/HPF) Urine Squamous Epithelial Cells None /LPF (</=FEW) Urine Bacteria Negative /HPF (NONE-FEW) Urine Mucus None /HPF (NONE-FEW) Urine Opiates Screen Negative Urine Barbiturates Screen Negative Ur Tricyclic Antidepressants Screen Negative Urine Phencyclidine Screen Negative Urine Amphetamines Screen Negative Urine Benzodiazepines Screen Negative Urine Cocaine Screen Negative Urine Cannabinoids Screen Negative Toxicology Test 03/24/18 06:20 Urine Opiates Screen Negative Urine Barbiturates Screen Negative Ur Tricyclic Antidepressants Screen Negative Urine Phencyclidine Screen Negative Urine Amphetamines Screen Negative Urine Benzodiazepines Screen Negative Urine Cocaine Screen Negative Urine Cannabinoids Screen Negative Urinalysis Test 03/24/18 06:20 Urine Color Yellow Urine Clarity Clear Urine pH 6.0 pH (4.8-9.5) Urine Specific [place] 1.006 Urine Protein Negative mg/dL (NEGATIVE) Urine Glucose (UA) Negative mg/dL (NEGATIVE) Urine Ketones Negative mg/dL (NEGATIVE) Urine Blood Negative (NEGATIVE) Urine Nitrite Negative (NEGATIVE) Urine Bilirubin Negative (NEGATIVE) Urine Urobilinogen Negative mg/dL (0.2-1.9) Urine Leukocyte Esterase Negative (NEGATIVE) Urine RBC None /HPF (0-2/HPF) Urine WBC <1 /HPF (0-5/HPF) Urine Squamous Epithelial Cells None /LPF (</=FEW) Urine Bacteria Negative /HPF (NONE-FEW) Urine Mucus None /HPF (NONE-FEW) ED Course/Re-evaluation ED Course Patient was admitted to an examination room. H&P was done. The differential diagnoses was considered. On clinical examination. Patient has a benign examination. He noteshepatosplenomegaly. He has no jaundice. Patient reports she's been back to a half pint a day for the last 2 months or more. Patient was offered the opportunity to go upstairs to behavioral health, but patient declines. He would just like medication to help him in his his withdrawal. Patient's given a prescription for Ativan and 4 Zofran. He is advised to follow up with [facility] for outpatient detox treatment. Decision to Disposition Date: Mar 24, 2018 Decision to Disposition Time: 06:32 Depart Departure Latest Vital Signs Vital Signs Date Time Temp Pulse Resp B/P (MAP) Pulse Ox O2 Delivery O2 Flow Rate FiO2 03/24/18 06:22 97.4 100 16 149/101 95 Room Air Impression: Primary Impression: Alcohol dependence Condition: Improved Disposition: HOME OR SELF-CARE New Scripts Ondansetron Hcl (ZOFRAN) 4 Mg Tablet 4 MG PO Q8-12H PRN for NAUSEA/VOMITING, #10 Prov: SEGUNDO LOPES DO 03/24/18 Lorazepam (ATIVAN) 1 Mg Tablet 1-2 MG PO Q6-8H PRN for alcohol withdrawal symptoms, #15 Prov: SEGUNDO LOPES DO 03/24/18 Patient Instructions: Alcohol Withdrawal (ED) Additional Instructions: Follow up with [facility] [phone], [address] Problem Qualifiers Primary Impression: Alcohol dependence Substance use status: unspecified alcohol-induced disorder Qualified Codes: F10.29 - Alcohol dependence with unspecified alcohol-induced disorder SEGUNDO LOPES DO Mar 24, 2018 06:35
== END 2018-03-24 06:40 | disposition home or self-care (01) ==
LOC: ER 06:30
DX: F10.29 Alcohol dependence with unspecified alcohol-induced disorder (principal)
CPT/HCPCS: 80305; 81001; 99283